=== PATIENT | female | born 1955 | race Caucasian/White ===

== ENCOUNTER → 2016-07-19 | Outpatient (CLI) | payer MEDICARE ==
[2016-07-19 08:39] LABS: HEMATOCRIT 41.1 % (36.0-47.0); HEMOGLOBIN 13.2 g/dL (12.0-15.5); HGB HCT DIFFERENCE -1.5; MEAN CORPUSCULAR HEMOGLOBIN 29.5 pg (27.0-33.4); MEAN CORPUSCULAR HGB CONC 32.1 g/dL (32.0-36.0); MEAN CORPUSCULAR VOLUME 92 fl (80-97); RED BLOOD COUNT 4.48 10^6/uL (3.72-5.28); RED CELL DISTRIBUTION WIDTH 14.4 % (11.5-14.0); WHITE BLOOD COUNT 7.7 10^3/uL (4.0-10.5)
[2016-07-19 09:18] LABS: ALANINE AMINOTRANSFERASE 33 U/L (9-52); ALBUMIN 3.3 g/dL (3.5-5.0); ALKALINE PHOSPHATASE 96 U/L (38-126); ASPARTATE AMINO TRANSFERASE 32 U/L (14-36); BILIRUBIN,TOTAL 0.3 mg/dL (0.2-1.3); CHOLESTEROL 201.19 mg/dL (0-200); Direct HDL 52 mg/dL (>40); MAGNESIUM 1.9 mg/dL (1.6-2.3); TOTAL PROTEIN 5.7 g/dL (6.3-8.2); TRIGLYCERIDES 220 mg/dL (<150)
[2016-07-19 09:20] LABS: ANION GAP 7 (5-19); BLOOD UREA NITROGEN 13 mg/dL (7-20); CALCIUM 8.9 mg/dL (8.4-10.2); CARBON DIOXIDE 33 mmol/L (22-30); CHLORIDE 106 mmol/L (98-107); CREATININE RESULT 0.87 mg/dL (0.52-1.25); GLUCOSE 109 mg/dL (75-110); POTASSIUM 4.3 mmol/L (3.6-5.0); SODIUM 146.4 mmol/L (137-145)
[2016-07-19 09:29] LABS: DIRECT LDL 108 mg/dL (<100)
== END ==
LOC: OD 07:19
PROVIDERS: ATTEND Internal Medicine Cardiovascular Disease
DX: Z79.899 Other long term (current) drug therapy (principal); I48.4 Atypical atrial flutter
CPT/HCPCS: 36415; 80048; 80061; 80076; 83735; 84443; 85027

== ENCOUNTER → 2017-07-22 | Outpatient (CLI) | payer MEDICARE ==
--- NOTE | 2017-07-22 17:49 | RADIOLOGY REPORT (SQ) ---
EXAM DESCRIPTION: OS CALCIS/HEEL LEFT COMPLETED DATE/TIME: 07/22/2017 5:37 pm REASON FOR STUDY: PAIN OF LEFT HEEL M79.672 PAIN IN LEFT FOOT COMPARISON: None. NUMBER OF VIEWS: Two views. TECHNIQUE: Plantar and oblique radiographic images acquired of the left calcaneous. LIMITATIONS: None. FINDINGS: MINERALIZATION: Normal. BONES: No acute fracture or dislocation. No worrisome bone lesions. Mild posterior and plantar calc aneal spurring. JOINTS: No effusions. SOFT TISSUES: No soft tissue swelling. No foreign body. OTHER: No other significant finding. IMPRESSION: CALCANEAL SPURRING. NO ACUTE OSSEOUS ABNORMALITY. TECHNICAL DOCUMENTATION: JOB ID: [id number] [employer]- All Rights Reserved
== END ==
LOC: OD 17:23
PROVIDERS: ATTEND Family Medicine
DX: M79.672 Pain in left foot (principal); M77.32 Calcaneal spur, left foot

== ENCOUNTER 2018-01-27 19:37 | Emergency (ER) | payer MEDICARE ==
[2018-01-27] MEDS ORDERED: NORMAL SALINE 1000 ML 1,000 ML IV ONE (21:23)
[2018-01-27] MEDS ORDERED: PROCHLORPERAZINE EDISYLATE INJ 10 MG/2 ML VIAL IV ONE (21:23)
[2018-01-27] MEDS ORDERED: DIPHENHYDRAMINE HCL 50 MG/ML VIAL IV ONE (21:24)
[2018-01-27 21:46] LABS: ABSOLUTE BASOPHILS # (AUTO) 0.1 10^3/uL (0.0-0.2); ABSOLUTE EOSINOPHILS # (AUTO) 0.2 10^3/uL (0.0-0.6); ABSOLUTE LYMPHOCYTES (AUTO) 3.1 10^3/uL (0.5-4.7); ABSOLUTE MONOCYTES (AUTO) 0.9 10^3/uL (0.1-1.4); BASOPHILS % (AUTO) 0.5 % (0-2); EOSINOPHILS % (AUTO) 1.3 % (0-6); HEMATOCRIT 40.6 % (36.0-47.0); HEMOGLOBIN 13.6 g/dL (12.0-15.5); LYMPHOCYTES % (AUTO) 20.3 % (13-45); MEAN CORPUSCULAR HEMOGLOBIN 30.2 pg (27.0-33.4); MEAN CORPUSCULAR HGB CONC 33.5 g/dL (32.0-36.0); MEAN CORPUSCULAR VOLUME 90 fl (80-97); MONOCYTES % (AUTO) 5.7 % (3-13); PLATELET COUNT 245 10^3/uL (150-450); RED BLOOD COUNT 4.51 10^6/uL (3.72-5.28); RED CELL DISTRIBUTION WIDTH 14.2 % (11.5-14.0); SEGMENTED NEUTROPHILS % (AUTO) 72.2 % (42-78); TOTAL CELLS COUNTED % (AUTO) 100 %; WHITE BLOOD COUNT 15.2 10^3/uL (4.0-10.5)
[2018-01-27 21:50] LABS: APPEARANCE,URINE CLEAR; BILIRUBIN,URINE NEGATIVE (NEGATIVE); COLOR,URINE COLORLESS; GLUCOSE, URINE 150 mg/dL (NEGATIVE); KETONES,URINE NEGATIVE (NEGATIVE); LEUKOCYTE ESTERASE,URINE NEGATIVE (NEGATIVE); NITRITE,URINE NEGATIVE (NEGATIVE); PROTEIN,URINE NEGATIVE (NEGATIVE); URINE SPECIFIC GRAVITY 1.004; UROBILINOGEN,URINE NEGATIVE mg/dL (<2.0)
[2018-01-27 21:54] LABS: ALANINE AMINOTRANSFERASE 29 U/L (9-52); ALBUMIN 3.8 g/dL (3.5-5.0); ALKALINE PHOSPHATASE 85 U/L (38-126); ANION GAP 9 (5-19); ASPARTATE AMINO TRANSFERASE 34 U/L (14-36); BILIRUBIN,DIRECT 0.3 mg/dL (0.0-0.4); BILIRUBIN,TOTAL 0.5 mg/dL (0.2-1.3); BLOOD UREA NITROGEN 19 mg/dL (7-20); CARBON DIOXIDE 26 mmol/L (22-30); CHLORIDE 106 mmol/L (98-107); GLUCOSE 139 mg/dL (75-110); POTASSIUM 4.1 mmol/L (3.6-5.0); SODIUM 140.7 mmol/L (137-145); TOTAL PROTEIN 6.3 g/dL (6.3-8.2)
--- NOTE | 2018-01-27 22:08 | RADIOLOGY REPORT (SQ) ---
EXAM DESCRIPTION: CT HEAD WITHOUT COMPLETED DATE/TIME: 01/27/2018 9:59 pm REASON FOR STUDY: headache, nose bleed COMPARISON: 01/20/2016 TECHNIQUE: Axial images acquired through the brain without intravenous contrast. Images reviewed wi th bone, brain and subdural windows. Additional sagittal and coronal reconstructions were generated. Images stored on PACS. All CT scanners at this facility use dose modulation, iterative reconstruction, and/or weight based d osing when appropriate to reduce radiation dose to as low as reasonably achievable (ALARA). [facility]: Dose Right [facility]: CareDose [facility]: Dose Right [facility]: Teradose 4D [facility]: Smart [employer] RADIATION DOSE: CT Rad equipment meets quality standard of care and radiation dose reduction techniq ues were employed. CTDIvol: 53.2 mGy. DLP: 1044 mGy-cm. mGy. LIMITATIONS: None. FINDINGS: VENTRICLES: Normal size and contour. CEREBRUM: No masses. No hemorrhage. No midline shift. No evidence for acute infarction. Normal gra y/white matter differentiation. No areas of low density in the white matter. CEREBELLUM: No masses. No hemorrhage. No alteration of density. No evidence for acute infarction. EXTRAAXIAL SPACES: No fluid collections. No masses. ORBITS AND GLOBE: No intra- or extraconal masses. Normal contour of globe without masses. CALVARIUM: No fracture. PARANASAL SINUSES: No fluid or mucosal thickening. SOFT TISSUES: No mass or hematoma. OTHER: No other significant finding. IMPRESSION: NORMAL BRAIN CT WITHOUT CONTRAST. EVIDENCE OF ACUTE STROKE: NO. COMMENT: Quality ID # [id number]: Final reports with documentation of one or more dose reduction techniques (e.g., Automated exposure control, adjustment of the mA and/or kV according to patient size, use of iterative reconstruction technique) TECHNICAL DOCUMENTATION: JOB ID: [id number] [email or web address]- All Rights Reserved Reading location - IP/workstation name: [email or web address]
--- NOTE | 2018-01-27 22:51 | ER Document Report ---
ED General - General Chief Complaint: Nose Bleed Stated Complaint: HEADACHE/NOSE BLEED Time Seen by Provider: 01/27/18 21:09 Mode of Arrival: Medic Information source: Patient Notes: Patient is a 62-year-old female who presents to the emergency department via EMS for headache with nosebleed. Patient reports that she has had a headache since approximately 5:55 PM tonight accompanied by a nosebleed. Patient reports that she has a history of migraines and this feels the same as a migraine. She reports the headache was a gradual onset is located on the left side of her head. Patient reports that over the last several weeks she has had nosebleeds accompanying her headaches. Patient reports that she was seen at [facility] emergency department on Tuesday night, had a head CT, EKG and blood work that was all apparently unremarkable. Patient denies any fever. Does report that she has been feeling dizzy lately with some generalized weakness. TRAVEL OUTSIDE OF THE [place] IN LAST 30 DAYS: No - Related Data Allergies/Adverse Reactions: adhesive [Adhesive] Allergy (Severe, Verified 10/08/15 09:48) rash cephalexin [Cephalexin] Allergy (Severe, Verified 10/08/15 09:48) sore tongue ciprofloxacin [From Cipro] Allergy (Severe, Verified 10/08/15 09:48) itching ciprofloxacin HCl [From Cipro] Allergy (Severe, Verified 10/08/15 09:48) itching cobamamide [From B12] Allergy (Severe, Verified 10/08/15 09:48) Lips swelled Cyanocobalamin [From B12] Allergy (Severe, Verified 10/08/15 09:48) Lips swelled lamotrigine [Lamotrigine] Allergy (Severe, Verified 10/08/15 09:48) manic linezolid [From Zyvox] Allergy (Severe, Verified 10/08/15 09:48) severe rxn other meds meperidine HCl [From Demerol] Allergy (Severe, Verified 10/08/15 09:48) dizzy,n and v Penicillins Allergy (Severe, Verified 10/08/15 09:48) jtchimg,swelling,rash vancomycin [Vancomycin] Allergy (Severe, Verified 10/08/15 09:48) Hives venlafaxine HCl [From Effexor] Allergy (Severe, Verified 10/08/15 09:48) heart races,increased b/p dpt shot Allergy (Severe, Uncoded 10/08/15 09:48) itching,rash,swelling Past Medical History - General Information source: Patient - Social History Smoking Status: Never Smoker Frequency of alcohol use: None Drug Abuse: None Family History: Hyperlipidemia, Hypertension Patient has suicidal ideation: No Patient has homicidal ideation: No - Past Medical History Cardiac Medical History: Denies: Hx Coronary Artery Disease, Hx Heart Attack, Hx Hypertension - on lasix for edema Pulmonary Medical History: Reports: Hx Bronchitis, Hx COPD - mild, Hx Pneumonia Denies: Hx Asthma Neurological Medical History: Reports: Hx Migraine. Denies: Hx Cerebrovascular Accident, Hx Seizures Endocrine Medical History: Reports: Hx Diabetes Mellitus Type 2 Renal/ Medical History: Denies: Hx Peritoneal Dialysis GI Medical History: Reports: Hx Gastroesophageal Reflux Disease Musculoskeletal Medical History: Reports Hx Arthritis Psychiatric Medical History: Reports: Hx Bipolar Disorder Past Surgical History: Reports: Hx Abdominal Surgery, Hx Appendectomy, Hx Bowel Surgery - part of small intestine removed 2004, Hx Cardiac Catheterization, Hx Section, Hx Cholecystectomy, Hx Hysterectomy, Hx Orthopedic Surgery - L knee - Immunizations Immunizations up to date: Yes Hx Diphtheria, Pertussis, Tetanus Vaccination: - allergic Hx Pneumococcal Vaccination: 05/19/10 Review of Systems - Review of Systems Constitutional: No symptoms reported, Malaise, Weakness EENT: No symptoms reported Cardiovascular: No symptoms reported Respiratory: No symptoms reported Gastrointestinal: No symptoms reported Genitourinary: No symptoms reported Female Genitourinary: No symptoms reported Musculoskeletal: No symptoms reported Skin: No symptoms reported Hematologic/Lymphatic: No symptoms reported Neurological/Psychological: Headaches. denies: Numbness, Tingling Physical Exam - Vital signs Vitals: Temp Pulse Resp BP Pulse Ox 98.4 F 87 12 143/72 H 93 01/27/18 19:40 01/27/18 19:40 01/27/18 19:40 01/27/18 19:40 01/27/18 19:40 - Notes Notes: PHYSICAL EXAMINATION: GENERAL: Non-toxic, in mild distress. HEAD: Atraumatic, normocephalic. EYES: Pupils equal round and reactive to light, extraocular movements intact, conjunctiva are normal. ENT: Nares patent, oropharynx clear without exudates. Moist mucous membranes. NECK: Normal range of motion, supple without lymphadenopathy LUNGS: Breath sounds clear to auscultation bilaterally and equal. No wheezes rales or rhonchi. HEART: Regular rate and rhythm without murmurs ABDOMEN: Soft, nontender, nondistended abdomen. No guarding, no rebound. No masses appreciated. Female : deferred. Musculoskeletal: Normal range of motion, no pitting or edema. No cyanosis. NEUROLOGICAL: Cranial nerves grossly intact. Normal speech, normal gait. Normal sensory, motor exams PSYCH: Normal mood, normal affect. SKIN: Warm, Dry, normal turgor, no rashes or lesions noted. Course - Re-evaluation Re-evalutation: Nosebleed was already resolved before arrival to the emergency department. Patient reports that Benadryl and Compazine usually alleviate her migraines. Patient reports that this migraine is similar to her typical migraines however patient reports that this is worse. Patient denies any fever. Patient reports that her headache has been going on for a week intermittently. See HPI. Examination is fairly benign (see exam), patient does not have any nuchal rigidity. Patient reports mild resolution of her pain after Benadryl and Compazine, patient very groggy likely due to the Benadryl as patient was more alert when she arrived. Comprehensive metabolic panel and urinalysis are both unremarkable , CT of the head is also unremarkable. CBC reveals leukocytosis of 15 with left shift. I did discuss this case with Dr. Ceja who recommends to give patient additional dose of medication for her headache and reevaluate. Dr. Ceja will go to the bedside and evaluate the patient. Patient received a dose of IV Toradol, IV Ativan and p.o. Imitrex, patient now reports near complete resolution of her symptoms. Patient has perked up and reports that she is ready to go. Patient's vital signs are stable. Patient encouraged to continue her follow-up with her primary care provider. Patient will return to the emergency department if she develops worsening symptoms or develops a fever. - Vital Signs Vital signs: Temp Pulse Resp BP Pulse Ox 98.4 F 87 14 125/59 L 93 01/27/18 19:40 01/27/18 19:40 01/28/18 03:01 01/28/18 03:01 01/28/18 03:01 - Laboratory Result Diagrams: 01/27/18 19:53 01/27/18 19:53 Laboratory results interpreted by me: 01/27/18 01/27/18 01/27/18 19:46 19:48 19:53 WBC 15.2 H RDW 14.2 H Absolute Neutrophils 11.0 H Glucose POC Glucose 157 H Urine Glucose (UA) 150 H 01/27/18 19:53 WBC RDW Absolute Neutrophils Glucose 139 H POC Glucose Urine Glucose (UA) Discharge - Discharge Clinical Impression: Migraine Qualifiers: Migraine type: other Status migrainosus presence: without status migrainosus Intractability: not intractable Qualified Code(s): G43.809 - Other migraine, not intractable, without status migrainosus Condition: Stable Disposition: HOME, SELF-CARE Additional Instructions: Migraine Headache The physician feels that your symptoms are due to a migraine attack. Migraines are caused by changes in the blood vessels of the head. Arteries go into spasm, often causing warning symptoms that a headache may begin soon. As the spasm goes away, the vessels dilate and throb, causing the pounding pain of a migraine headache. Migraines often cause nausea and vomiting. The treatment of headaches varies with severity and cause of pain. Not all headaches need pain shots -- in fact, there is evidence that using narcotics for headaches may make them worse in the long run. The physician will determine the therapy that's in your best interest for this particular headache. Medications are available that may prevent migraines, or stop them as they first occur. If one medication is not helpful, try another. If migraines are frequent, be patient -- follow the doctor's recommendations. Call the physician if you are worsening, or if new symptoms arise. Please follow-up with your primary care provider as already scheduled. Please return to the emergency department if you develop worsening symptoms, develop a headache with fever. Referrals: SHAMA HOFFMAN MD [NO LOCAL MD] - Follow up as needed
[2018-01-28] MEDS ORDERED: SUMATRIPTAN SUCCINATE 100 MG TABLET PO ONE (00:27)
[2018-01-28] MEDS ORDERED: LORAZEPAM INJ 2 MG/1 ML VIAL IV ONE (00:28)
[2018-01-28] MEDS ORDERED: KETOROLAC TROMETHAMINE INJ/PF 30 MG/1 ML SDV IV ONE (00:51)
[2018-01-28] MEDS ORDERED: SUMATRIPTAN SUCCINATE 100 MG TABLET ONE (01:18)
[2018-01-28 03:16] VITALS: BP 125/59
== END 2018-01-28 03:39 | disposition home or self-care (01) ==
LOC: ER 19:37
DX: G43.909 Migraine, unspecified, not intractable, without status migrainosus (principal); R04.0 Epistaxis; R42 Dizziness and giddiness; R53.1 Weakness; J44.9 Chronic obstructive pulmonary disease, unspecified; E11.9 Type 2 diabetes mellitus without complications; Z91.048 Other nonmedicinal substance allergy status; Z88.1 Allergy status to other antibiotic agents; Z88.8 Allergy status to other drugs, medicaments and biological substances; Z88.5 Allergy status to narcotic agent; Z88.0 Allergy status to penicillin; Z88.7 Allergy status to serum and vaccine; D72.829 Elevated white blood cell count, unspecified
CPT/HCPCS: 99284; 96361; 96374; 96375; 36415; 82962; 85025; 80053; 81001; 70450; J1200; J1885; J2060; J0780; J7030; A9270; J3490

== ENCOUNTER 2018-11-19 11:52 | Emergency (ER) | payer MEDICARE ==
[2018-11-19 12:02] VITALS: BP 147/72
[2018-11-19] MEDS ORDERED: NORMAL SALINE 1000 ML 500 ML IV ONE (12:16)
[2018-11-19] MEDS ORDERED: KETOROLAC TROMETHAMINE INJ/PF 30 MG/1 ML SDV IV ONE (12:16)
[2018-11-19] MEDS ORDERED: ONDANSETRON HCL INJ/PF 4 MG/2 ML SDV IV ONE (12:16)
[2018-11-19] MEDS ORDERED: PROCHLORPERAZINE EDISYLATE INJ 10 MG/2 ML VIAL IV ONE (12:16)
--- NOTE | 2018-11-19 12:20 | ER Document Report ---
ED Medical Screen (RME) - General Chief Complaint: Headache Stated Complaint: HEADACHE Time Seen by Provider: 11/19/18 12:11 Mode of Arrival: Wheelchair Information source: Patient Notes: Patient presents to the emergency department with complaints of migraine headache across her head to her temples. Reports this her typical migraine headache. She reports before the headache starts that she has an aura and she takes her migraine medication. This migraine started yesterday, she took her medication but her migraine was not resolved. Usually she goes to her primary care provider for these migraines and receives a muscle relaxer and Toradol shot. She reports she is somewhat nauseated today. Denies vomiting. Reports light makes the headache hurt more. I have greeted and performed a rapid initial assessment of this patient. A comprehensive ED assessment and evaluation of the patient, analysis of test results and completion of the medical decision making process will be conducted by additional ED providers. Dictation of this chart was performed using voice recognition software; therefore, there may be some unintended grammatical errors. TRAVEL OUTSIDE OF THE [place] IN LAST 30 DAYS: No - Related Data Allergies/Adverse Reactions: adhesive [Adhesive] Allergy (Severe, Verified 11/19/18 11:53) rash cephalexin [Cephalexin] Allergy (Severe, Verified 11/19/18 11:53) sore tongue ciprofloxacin [From Cipro] Allergy (Severe, Verified 11/19/18 11:53) itching ciprofloxacin HCl [From Cipro] Allergy (Severe, Verified 11/19/18 11:53) itching cobamamide [From B12] Allergy (Severe, Verified 11/19/18 11:53) Lips swelled Cyanocobalamin [From B12] Allergy (Severe, Verified 11/19/18 11:53) Lips swelled lamotrigine [Lamotrigine] Allergy (Severe, Verified 11/19/18 11:53) manic linezolid [From Zyvox] Allergy (Severe, Verified 11/19/18 11:53) severe rxn other meds meperidine HCl [From Demerol] Allergy (Severe, Verified 11/19/18 11:53) dizzy,n and v Penicillins Allergy (Severe, Verified 11/19/18 11:53) jtchimg,swelling,rash vancomycin [Vancomycin] Allergy (Severe, Verified 11/19/18 11:53) Hives venlafaxine HCl [From Effexor] Allergy (Severe, Verified 11/19/18 11:53) heart races,increased b/p dpt shot Allergy (Severe, Uncoded 11/19/18 11:53) itching,rash,swelling Past Medical History - Past Medical History Cardiac Medical History: Denies: Hx Coronary Artery Disease, Hx Heart Attack, Hx Hypertension - on lasix for edema Pulmonary Medical History: Reports: Hx Bronchitis, Hx COPD - mild, Hx Pneumonia Denies: Hx Asthma Neurological Medical History: Reports: Hx Migraine. Denies: Hx Cerebrovascular Accident, Hx Seizures Endocrine Medical History: Reports: Hx Diabetes Mellitus Type 2 Renal/ Medical History: Denies: Hx Peritoneal Dialysis GI Medical History: Reports: Hx Gastroesophageal Reflux Disease Musculoskeltal Medical History: Reports Hx Arthritis Psychiatric Medical History: Reports: Hx Bipolar Disorder Past Surgical History: Reports: Hx Abdominal Surgery, Hx Appendectomy, Hx Bowel Surgery - part of small intestine removed 2004, Hx Cardiac Catheterization, Hx Section, Hx Cholecystectomy, Hx Hysterectomy, Hx Orthopedic Surgery - L knee - Immunizations Immunizations up to date: Yes Hx Diphtheria, Pertussis, Tetanus Vaccination: - allergic Physical Exam - Vital signs Vitals: Temp Pulse Resp BP Pulse Ox 98.3 F 57 L 16 147/72 H 95 11/19/18 12:00 11/19/18 12:00 11/19/18 12:00 11/19/18 12:00 11/19/18 12:00 Course - Vital Signs Vital signs: Temp Pulse Resp BP Pulse Ox 98.3 F 57 L 16 147/72 H 95 11/19/18 12:00 11/19/18 12:00 11/19/18 12:00 11/19/18 12:00 11/19/18 12:00
--- NOTE | 2018-11-19 14:39 | ER Document Report ---
ED Headache - General Chief Complaint: Headache Stated Complaint: HEADACHE Time Seen by Provider: 11/19/18 12:11 Primary Care Provider: IRIS MCDONALD NP-C [Primary Care Provider] - Follow up tomorrow Mode of Arrival: Wheelchair Information source: Patient Notes: 63-year-old female presented to ED for complaint of migraine across her temples. She states this is her normal migraine headache. She states she took her medication and it did not help today. States she usually goes to her primary care for these migraines and receives a muscle relaxant a Toradol shot. She states she was somewhat nauseated today but has not had any vomiting. She was sleepy when I examined her due to having already received medications for her headache in the pit area. She states she no longer had a headache when I saw her. She states she was feeling completely better and was ready to go home. She states she has an appointment with a neurologist and she had a recent MRI and she needs to follow-up with a neurologist concerning this. TRAVEL OUTSIDE OF THE [place] IN LAST 30 DAYS: No - HPI Patient complains to provider of: Headache, "Migraine" Patient reports: Hx chronic headaches Onset: Yesterday Onset was: Gradual Timing: Gone now Quality of pain: No pain Severity: None Pain Level: Denies Associated symptoms: Nausea/vomiting Exacerbated by: Noise, Movement Similar symptoms previously: Yes Recently seen / treated by doctor: No - Related Data Allergies/Adverse Reactions: adhesive [Adhesive] Allergy (Severe, Verified 11/19/18 11:53) rash cephalexin [Cephalexin] Allergy (Severe, Verified 11/19/18 11:53) sore tongue ciprofloxacin [From Cipro] Allergy (Severe, Verified 11/19/18 11:53) itching ciprofloxacin HCl [From Cipro] Allergy (Severe, Verified 11/19/18 11:53) itching cobamamide [From B12] Allergy (Severe, Verified 11/19/18 11:53) Lips swelled Cyanocobalamin [From B12] Allergy (Severe, Verified 11/19/18 11:53) Lips swelled lamotrigine [Lamotrigine] Allergy (Severe, Verified 11/19/18 11:53) manic linezolid [From Zyvox] Allergy (Severe, Verified 11/19/18 11:53) severe rxn other meds meperidine HCl [From Demerol] Allergy (Severe, Verified 11/19/18 11:53) dizzy,n and v Penicillins Allergy (Severe, Verified 11/19/18 11:53) jtchimg,swelling,rash vancomycin [Vancomycin] Allergy (Severe, Verified 11/19/18 11:53) Hives venlafaxine HCl [From Effexor] Allergy (Severe, Verified 11/19/18 11:53) heart races,increased b/p dpt shot Allergy (Severe, Uncoded 11/19/18 11:53) itching,rash,swelling Past Medical History - General Information source: Patient - Social History Smoking Status: Never Smoker Chew tobacco use (# tins/day): No Frequency of alcohol use: None Drug Abuse: None Lives with: Family Family History: Hyperlipidemia, Hypertension Patient has suicidal ideation: No Patient has homicidal ideation: No - Past Medical History Cardiac Medical History: Reports: None Pulmonary Medical History: Reports: Hx Bronchitis, Hx COPD - mild, Hx Pneumonia EENT Medical History: Reports: None Neurological Medical History: Reports: Hx Migraine Endocrine Medical History: Reports: Hx Diabetes Mellitus Type 2 Renal/ Medical History: Reports: None Malignancy Medical History: Reports: None GI Medical History: Reports: Hx Gastroesophageal Reflux Disease Musculoskeletal Medical History: Reports Hx Arthritis Skin Medical History: Reports None Psychiatric Medical History: Reports: Hx Bipolar Disorder Traumatic Medical History: Reports: None Infectious Medical History: Reports: None Past Surgical History: Reports: Hx Abdominal Surgery, Hx Appendectomy, Hx Bowel Surgery - part of small intestine removed 2004, Hx Cardiac Catheterization, Hx Section, Hx Cholecystectomy, Hx Hysterectomy, Hx Orthopedic Surgery - L knee - Immunizations Immunizations up to date: Yes Hx Diphtheria, Pertussis, Tetanus Vaccination: - allergic Hx Pneumococcal Vaccination: 05/19/10 Review of Systems - Review of Systems Constitutional: No symptoms reported EENT: No symptoms reported Cardiovascular: No symptoms reported Respiratory: No symptoms reported Gastrointestinal: Nausea. denies: Vomiting Genitourinary: No symptoms reported Female Genitourinary: No symptoms reported Musculoskeletal: No symptoms reported Skin: No symptoms reported Hematologic/Lymphatic: No symptoms reported Neurological/Psychological: Headaches -: Yes All other systems reviewed and negative Physical Exam - Vital signs Vitals: Temp Pulse Resp BP Pulse Ox 98.3 F 57 L 16 147/72 H 95 11/19/18 12:00 11/19/18 12:00 11/19/18 12:00 11/19/18 12:00 11/19/18 12:00 Interpretation: Normal - General General appearance: Appears well, Alert - HEENT Head: Normocephalic, Atraumatic Eyes: Normal Pupils: PERRL - Respiratory Respiratory status: No respiratory distress Chest status: Nontender Breath sounds: Normal Chest palpation: Normal - Cardiovascular Rhythm: Regular Heart sounds: Normal auscultation Murmur: No - Abdominal Inspection: Normal Distension: No distension Bowel sounds: Normal Tenderness: Nontender Organomegaly: No organomegaly - Back Back: Normal, Nontender - Extremities General upper extremity: Normal inspection, Nontender, Normal color, Normal ROM, Normal temperature General lower extremity: Normal inspection, Nontender, Normal color, Normal ROM, Normal temperature, Normal weight bearing. No: Gardenia's sign - Neurological Neuro grossly intact: Yes Cognition: Normal Orientation: AAOx4 Shannon Coma Scale Eye Opening: Spontaneous Jenny Coma Scale Verbal: Oriented Shannon Coma Scale Motor: Obeys Commands Shannon Coma Scale Total: 15 Speech: Normal Cranial nerves: Normal Cerebellar coordination: Normal Motor strength normal: LUE, RUE, LLE, RLE Additional motor exam normals: Equal rounding machine tender Babinski reflex: Normal (flexor plantar) Sensory: Normal Biceps - Reflex grade: 2 = Normal Triceps - Reflex grade: 2 = Normal Knee - Reflex grade: 2 = Normal Ankle - Reflex grade: 2 = Normal - Psychological Associated symptoms: Normal affect, Normal mood - Skin Skin Temperature: Warm Skin Moisture: Dry Skin Color: Normal Course - Re-evaluation Re-evalutation: 11/19/18 14:39 Patient was able to verbalize understanding of assessment. She stated that her headache is completely gone she no longer has any nausea and she does have an appointment with Dr. Sykes for follow-up. states that she recently had an MRI and has 3 little spots that she has to follow-up with Mony. She said he states that the main reason she came today was to get relief from the pain and use the Toradol helps with the pain. Patient states that the pain is completely gone at this time. - Vital Signs Vital signs: Temp Pulse Resp BP Pulse Ox 98.3 F 57 L 16 147/72 H 95 11/19/18 12:00 11/19/18 12:00 11/19/18 12:00 11/19/18 12:00 11/19/18 12:00 Discharge - Discharge Clinical Impression: Migraine Qualifiers: Migraine type: unspecified Status migrainosus presence: without status migrainosus Intractability: not intractable Qualified Code(s): G43.909 - Migraine, unspecified, not intractable, without status migrainosus Condition: Stable Disposition: HOME, SELF-CARE Additional Instructions: HEADACHE: The physician does not feel that the headache you are experiencing has a serious underlying cause. Most headaches are due to emotional stress, with resultant muscle tension (tension headache). Occasionally, headaches are secondary to changes in the blood vessels of the scalp (vascular headache and migraine headache). Sometimes, a headache is the first symptom of another developing illness, such as a viral infection. You have no evidence of stroke, bleeding, meningitis, or other serious cause of your headache. The treatment of headaches varies with the severity and cause of the pain. Not all headaches need pain shots. In fact, there is evidence that using narcotics for headaches may make them worse in the long run. The physician will determine the therapy that's in your best interest. If you develop a fever, if the headache is different from any you've previously experienced, or if the headache progressively worsens, then call your physician at once or go to the emergency room. USE OF DIPHENHYDRAMINE: Diphenhydramine (Benadryl) is an antihistamine and has been recommended to help treat your headache and to prevent side effects of other medications used to treat headaches. The medication can be repeated four times daily. Age Elixir (12.5 mg/tsp) 25 mg pill adult 1-2 tabs Antihistamines may cause drowsiness, especially with the first dose. Do not operate machinery or drive while under the effects of the medication. Do not combine the medication with alcohol, or with any other medication without talking to your doctor. ANTINAUSEA MEDICATION: You have been given a medication to suppress nausea and vomiting. This type of medication can be given as a shot, pill, or suppository. It will usually last for many hours. Pills and shots usually last six to eight hours, suppositories last about 12 hours. For the typical illness, only one or two doses of the medication may be necessary. Mild lightheadedness may occur. This type of medicine can cause drowsiness. Do not drive or operate dangerous machinery while under its influence. Do not mix with alcohol. See your doctor at once if you have muscle spasms or tightness, or uncontrollable motions (particularly of the neck, mouth, or jaw). Persistent vomiting or severe lightheadedness should also be evaluated by the physician. INTRAVENOUS COMPAZINE FOR HEADACHE: You have received therapy for headaches, using intravenous Compazine. This treatment is dramatically successful in relieving the headache in about 50 percent of cases. When it works, it provides a rapid method of eliminating the headache without resorting to narcotics (and the problems associated with them). Most patients still feel fully alert after the Compazine, but others may be slightly drowsy. It's best not to drive or work with machinery for six to eight hours. Do not take alcohol or other medication unless you discuss it with the doctor. If you develop tightness and spasms in your muscles, especially the neck and tongue, you should return. This is a side effect which can be treated. TORADOL INJECTION: You have been given an injection of ketorolac tromethamine (Toradol). This is an excellent, safe drug for pain control. It also has potent antiinflammatory action. You should have significant pain relief within about one hour. Toradol is not addicting and is non-sedating. It does not interfere with driving or work. Call or return if you develop itching, hives, shortness of breath, or rash. FOLLOW-UP CARE: If you have been referred to a physician for follow-up care, call the physicians office for an appointment as you were instructed or within the next two days. If you experience worsening or a significant change in your symptoms, notify the physician immediately or return to the Emergency Department at any time for re-evaluation. Forms: Elevated Blood Pressure Referrals: IRIS MCDONALD NP-C [Primary Care Provider] - Follow up tomorrow
== END 2018-11-19 14:55 | disposition home or self-care (01) ==
LOC: ER 11:52
DX: G43.909 Migraine, unspecified, not intractable, without status migrainosus (principal); R11.0 Nausea; J44.9 Chronic obstructive pulmonary disease, unspecified; E11.9 Type 2 diabetes mellitus without complications; Z91.048 Other nonmedicinal substance allergy status; Z88.1 Allergy status to other antibiotic agents; Z88.8 Allergy status to other drugs, medicaments and biological substances; Z88.0 Allergy status to penicillin; Z88.5 Allergy status to narcotic agent
CPT/HCPCS: 99283; J1885; J0780; J2405; J7030

== ENCOUNTER 2020-02-04 12:03 | Emergency (ER) | payer MEDICARE ==
--- NOTE | 2020-02-04 13:17 | ER Document Report ---
ED Medical Screen (RME) - General Chief Complaint: Leg Pain Stated Complaint: RIGHT LEG PAIN Time Seen by Provider: 02/04/20 13:12 Primary Care Provider: IRIS MCDONALD NP-C [Primary Care Provider] - Follow up as needed Notes: HPI: 64-year-old female with prior history of blood clots who is on Eliquis presenting for right leg pain and concern over a new blood clot. Recent travel to [place]. Patient states that she would like to have both legs checked today because she has had pain less blood clots previously. No chest pain no shortness of breath PHYSICAL EXAMINATION: No visible swelling of the bilateral lower extremities no specific pain on palpation of the right calf I have greeted and performed a rapid initial assessment of this patient. A comprehensive ED assessment and evaluation of the patient, analysis of test results and completion of medical decision making process will be conducted by an additional ED providers. TRAVEL OUTSIDE OF THE [place] IN LAST 30 DAYS: No - Related Data Allergies/Adverse Reactions: adhesive [Adhesive] Allergy (Severe, Verified 11/19/18 11:53) rash cephalexin [Cephalexin] Allergy (Severe, Verified 11/19/18 11:53) sore tongue ciprofloxacin [From Cipro] Allergy (Severe, Verified 11/19/18 11:53) itching ciprofloxacin HCl [From Cipro] Allergy (Severe, Verified 11/19/18 11:53) itching cobamamide [From B12] Allergy (Severe, Verified 11/19/18 11:53) Lips swelled Cyanocobalamin [From B12] Allergy (Severe, Verified 11/19/18 11:53) Lips swelled lamotrigine [Lamotrigine] Allergy (Severe, Verified 11/19/18 11:53) manic linezolid [From Zyvox] Allergy (Severe, Verified 11/19/18 11:53) severe rxn other meds meperidine HCl [From Demerol] Allergy (Severe, Verified 11/19/18 11:53) dizzy,n and v Penicillins Allergy (Severe, Verified 11/19/18 11:53) jtchimg,swelling,rash vancomycin [Vancomycin] Allergy (Severe, Verified 11/19/18 11:53) Hives venlafaxine HCl [From Effexor] Allergy (Severe, Verified 11/19/18 11:53) heart races,increased b/p asenapine [From Saphris] Allergy (Verified 02/04/20 13:11) manic topiramate Allergy (Verified 02/04/20 13:12) tongue burning lurasidone [From Latuda] Adverse Reaction (Verified 02/04/20 13:11) sedation paliperidone [From Invega] Adverse Reaction (Verified 02/04/20 13:11) sedation dpt shot Allergy (Severe, Uncoded 11/19/18 11:53) itching,rash,swelling Home Medications: pt has paper list Past Medical History - Social History Chew tobacco use (# tins/day): No Frequency of alcohol use: None Drug Abuse: None - Past Medical History Cardiac Medical History: Denies: Hx Coronary Artery Disease, Hx Heart Attack, Hx Hypertension - on lasix for edema Pulmonary Medical History: Reports: Hx Bronchitis, Hx COPD - mild, Hx Pneumonia Denies: Hx Asthma Neurological Medical History: Reports: Hx Migraine. Denies: Hx Cerebrovascular Accident, Hx Seizures Endocrine Medical History: Reports: Hx Diabetes Mellitus Type 2 Renal/ Medical History: Denies: Hx Peritoneal Dialysis GI Medical History: Reports: Hx Gastroesophageal Reflux Disease Musculoskeltal Medical History: Reports Hx Arthritis Psychiatric Medical History: Reports: Hx Bipolar Disorder Past Surgical History: Reports: Hx Abdominal Surgery, Hx Appendectomy, Hx Bowel Surgery - part of small intestine removed 2004, Hx Cardiac Catheterization, Hx Section, Hx Cholecystectomy, Hx Hysterectomy, Hx Orthopedic Surgery - L knee - Immunizations Immunizations up to date: Yes Hx Diphtheria, Pertussis, Tetanus Vaccination: - allergic Physical Exam - Vital signs Vitals: Temp Pulse Resp BP Pulse Ox 99.3 F 83 18 123/65 96 02/04/20 12:25 02/04/20 12:25 02/04/20 12:25 02/04/20 12:25 02/04/20 12:25 Course - Vital Signs Vital signs: Temp Pulse Resp BP Pulse Ox 99.3 F 83 18 123/65 96 02/04/20 12:25 02/04/20 12:25 02/04/20 12:25 02/04/20 12:25 02/04/20 12:25 Doctor's Discharge - Discharge Referrals: IRIS MCDONALD, HEALTH DIAGNOSTICS TEACHER-C [Primary Care Provider] - Follow up as needed
[2020-02-04 14:34] LABS: ABSOLUTE BASOPHILS # (AUTO) 0.1 10^3/uL (0.0-0.2); ABSOLUTE EOSINOPHILS # (AUTO) 0.1 10^3/uL (0.0-0.6); ABSOLUTE LYMPHOCYTES (AUTO) 2.5 10^3/uL (0.5-4.7); ABSOLUTE MONOCYTES (AUTO) 0.8 10^3/uL (0.1-1.4); ABSOLUTE NEUT (AUTO) 5.2 10^3/uL (1.7-8.2); BASOPHILS % (AUTO) 0.7 % (0-2); EOSINOPHILS % (AUTO) 1.3 % (0-6); HEMATOCRIT 36.9 % (36.0-47.0); HEMOGLOBIN 12.1 g/dL (12.0-15.5); LYMPHOCYTES % (AUTO) 29.1 % (13-45); MEAN CORPUSCULAR HEMOGLOBIN 27.3 pg (27.0-33.4); MEAN CORPUSCULAR HGB CONC 32.9 g/dL (32.0-36.0); MEAN CORPUSCULAR VOLUME 83 fl (80-97); MONOCYTES % (AUTO) 9.4 % (3-13); PLATELET COUNT 255 10^3/uL (150-450); RED BLOOD COUNT 4.45 10^6/uL (3.72-5.28); RED CELL DISTRIBUTION WIDTH 17.5 % (11.5-14.0); SEGMENTED NEUTROPHILS % (AUTO) 59.5 % (42-78); TOTAL CELLS COUNTED % (AUTO) 100 %; WHITE BLOOD COUNT 8.7 10^3/uL (4.0-10.5)
--- NOTE | 2020-02-04 14:40 | ER Document Report ---
ED Extremity Problem, Lower - General Mode of Arrival: Ambulatory Information source: Patient, [facility] Records TRAVEL OUTSIDE OF THE [place] IN LAST 30 DAYS: No - Related Data Home Medications: pt has paper list <SEAN MAI - Last Filed: 02/04/20 16:46> <PEDROJEETKERENSHUBHAM Blackmon - Last Filed: 02/04/20 18:54> - General Chief Complaint: Leg Pain Stated Complaint: RIGHT LEG PAIN Time Seen by Provider: 02/04/20 13:12 Primary Care Provider: IRIS MCDONALD NP-C [NO LOCAL MD] - Follow up as needed Notes: This 64-year-old female patient comes emergency room complaining of discomfort to her right leg that started yesterday. She also noted some discoloration to the medial right leg which turned out to be some superficial varicosities. She did travel to [place] on 01/31/2020, and return home on 02/03/2020. She has an extensive past medical history which suggest a hypercoagulable state. She is on Eliquis at this time. 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 (SEAN MAI) - Related Data Allergies/Adverse Reactions: adhesive [Adhesive] Allergy (Severe, Verified 02/04/20 16:29) rash cephalexin [Cephalexin] Allergy (Severe, Verified 02/04/20 16:29) sore tongue ciprofloxacin [From Cipro] Allergy (Severe, Verified 02/04/20 16:29) itching ciprofloxacin HCl [From Cipro] Allergy (Severe, Verified 02/04/20 16:29) itching cobamamide [From B12] Allergy (Severe, Verified 02/04/20 16:29) Lips swelled Cyanocobalamin [From B12] Allergy (Severe, Verified 02/04/20 16:29) Lips swelled lamotrigine [Lamotrigine] Allergy (Severe, Verified 02/04/20 16:29) manic linezolid [From Zyvox] Allergy (Severe, Verified 02/04/20 16:29) severe rxn other meds meperidine HCl [From Demerol] Allergy (Severe, Verified 02/04/20 16:29) dizzy,n and v Penicillins Allergy (Severe, Verified 02/04/20 16:29) jtchimg,swelling,rash vancomycin [Vancomycin] Allergy (Severe, Verified 02/04/20 16:29) Hives venlafaxine HCl [From Effexor] Allergy (Severe, Verified 02/04/20 16:29) heart races,increased b/p asenapine [From Saphris] Allergy (Verified 02/04/20 16:29) manic topiramate Allergy (Verified 02/04/20 16:29) tongue burning lurasidone [From Latuda] Adverse Reaction (Verified 02/04/20 16:29) sedation paliperidone [From Invega] Adverse Reaction (Verified 02/04/20 16:29) sedation dpt shot Allergy (Severe, Uncoded 11/19/18 11:53) itching,rash,swelling Past Medical History - General Information source: Patient, [facility] Records - Social History Smoking Status: Never Smoker Cigarette use (# per day): No Chew tobacco use (# tins/day): No Smoking Education Provided: No Frequency of alcohol use: None Drug Abuse: None Lives with: Family Family History: Hyperlipidemia, Hypertension Patient has homicidal ideation: No - Past Medical History Cardiac Medical History: Reports: Hx DVT, Hx Hypercholesterolemia, Hx Pulmonary Embolism Pulmonary Medical History: Reports: Hx Bronchitis, Hx COPD - mild, Hx Pneumonia Neurological Medical History: Reports: Hx Migraine Endocrine Medical History: Reports: Hx Diabetes Mellitus Type 2 GI Medical History: Reports: Hx Gastroesophageal Reflux Disease Musculoskeletal Medical History: Reports Hx Arthritis Psychiatric Medical History: Reports: Hx Bipolar Disorder, Other - Restless leg syndrome Past Surgical History: Reports: Hx Abdominal Surgery, Hx Appendectomy, Hx Bowel Surgery - part of small intestine removed 2004, Hx Cardiac Catheterization, Hx Section, Hx Cholecystectomy, Hx Gastric Bypass Surgery, Hx Hysterectomy, Hx Orthopedic Surgery - L knee, left rotator cuff, Other - Sinus surgery - Immunizations Immunizations up to date: Yes Hx Diphtheria, Pertussis, Tetanus Vaccination: - allergic Hx Pneumococcal Vaccination: 05/19/10 <SEAN MAI - Last Filed: 02/04/20 16:46> Review of Systems - Review of Systems Constitutional: No symptoms reported EENT: No symptoms reported Cardiovascular: No symptoms reported Respiratory: No symptoms reported Gastrointestinal: No symptoms reported Genitourinary: No symptoms reported Female Genitourinary: Post menopausal Musculoskeletal: Leg swelling - Takes as needed Lasix, Other - Restless legs Skin: No symptoms reported Hematologic/Lymphatic: No symptoms reported Neurological/Psychological: Headaches <SEAN MAI - Last Filed: 02/04/20 16:46> Physical Exam - Extremities General upper extremity: Normal inspection General lower extremity: Edema - 1+ pitting edema bilaterally. Calf: Other - Right medial calf area has some subcutaneous varicosities. The proximal posterior calf region is tender to palpate. There is also some tenderness to palpate over the distal anterior medial tibial surface. <SEAN MAI - Last Filed: 02/04/20 16:46> - Vital signs Vitals: Temp Pulse Resp BP Pulse Ox 99.3 F 83 18 123/65 96 02/04/20 12:25 02/04/20 12:25 02/04/20 12:25 02/04/20 12:25 02/04/20 12:25 Course - Laboratory Result Diagrams: 02/04/20 14:18 02/04/20 14:18 - Transfer of Care Care transferred to following provider: Dr. Vincent <SEAN MAI - Last Filed: 02/04/20 16:46> - Laboratory Result Diagrams: 02/04/20 14:18 02/04/20 14:18 <CONG VINCENT - Last Filed: 02/04/20 18:54> - Re-evaluation Re-evalutation: 02/04/20 16:26 The patient has right leg pain following an automobile trip to [place] and back over this past weekend. She does have a history of hypercoagulable state, with DVTs in both legs and pulmonary emboli. She is currently taking Eliquis. She is supposed to be going to [facility] oncology for a work-up for suspected hypercoagulable state. The d-dimer is 0.36 which makes DVT unlikely. The physical exam does show tenderness in the popliteal and proximal right posterior leg. Venous Dopplers were ordered at triage, and due to tech shortage, the tech will be here at 5 PM to start doing the venous Dopplers that have been ordered. (SEAN MAI) 02/04/20 18:53 Care of this patient was turned over to me during my shift. The patient was primarily here because she noticed some varicosities in her right leg, had a trip to [place], but is concerned about the possibility of DVT. She has been taking her anticoagulants as prescribed. Verbal report given to me by the scrub tech, found Doppler to be negative. Patient relieved to find there was no evidence of DVT at this time. She is to follow-up closely with her primary care provider, return to the ED with worsening. (CONG VINCENT) - Vital Signs Vital signs: Temp Pulse Resp BP Pulse Ox 99.3 F 83 18 123/65 96 02/04/20 12:25 02/04/20 12:25 02/04/20 12:25 02/04/20 12:25 02/04/20 12:25 - Laboratory Laboratory results interpreted by me: 02/04/20 02/04/20 02/04/20 14:18 14:18 14:26 RDW 17.5 H Sodium 135.1 L BUN 21 H Glucose 129 H POC Glucose 153 H AST 52 H Alkaline Phosphatase 127 H - Transfer of Care Notes: 02/04/20 16:28 Patient is pending venous Doppler to evaluate for recurrent DVT in her right leg. (SEAN MAI) Discharge <SEAN MAI - Last Filed: 02/04/20 16:46> <CONG VINCENT - Last Filed: 02/04/20 18:54> - Discharge Clinical Impression: Right leg pain Condition: Stable Disposition: HOME, SELF-CARE Instructions: Leg Pain Nonspecific ([facility]), Varicose Veins ([facility]) Additional Instructions: Continue your home medications as prescribed. Follow-up with your primary care provider next week. If you develop increased pain, swelling, chest pain, shortness of breath, or any other new or concerning symptoms, please return immediately to the emergency department for reevaluation. Referrals: IRIS MCDONALD HARDWARE TEST ENGINEERVladislavC [NO LOCAL MD] - Follow up as needed
[2020-02-04 14:41] LABS: INTERNATIONAL RATION (INR) 1.07; PROTHROMBIN TIME 14.1 SEC (11.4-15.4)
[2020-02-04 14:43] LABS: D-DIMER 0.36 ug/mL (0.00-0.50)
[2020-02-04 14:53] LABS: ALBUMIN 4.2 g/dL (3.5-5.0); ALKALINE PHOSPHATASE 127 U/L (38-126); ANION GAP 6 (5-19); ASPARTATE AMINO TRANSFERASE 52 U/L (14-36); BILIRUBIN,DIRECT 0.1 mg/dL (0.0-0.4); BILIRUBIN,TOTAL 0.5 mg/dL (0.2-1.3); BLOOD UREA NITROGEN 21 mg/dL (7-20); CALCIUM 9.1 mg/dL (8.4-10.2); CARBON DIOXIDE 30 mmol/L (22-30); CHLORIDE 99 mmol/L (98-107); GLUCOSE 129 mg/dL (75-110); POTASSIUM 3.8 mmol/L (3.6-5.0); TOTAL PROTEIN 6.9 g/dL (6.3-8.2)
--- NOTE | 2020-02-04 19:47 | RADIOLOGY REPORT (SQ) ---
EXAM DESCRIPTION: VENOUS BILATERAL LOWER IMAGES COMPLETED DATE/TIME: 02/04/2020 7:36 pm REASON FOR STUDY: concern for DVT COMPARISON: None. TECHNIQUE: Dynamic and static rose scale and color images acquired of both lower extremity venous sy stems. Selected spectral images acquired with additional compression and augmentation maneuvers. Imag es stored on PACS. LIMITATIONS: None. FINDINGS: RIGHT LEG COMMON FEMORAL AND FEMORAL: Normal phasicity, compression and augmentation. No visualized echogenic m aterial on rose scale. No defects on color images. POPLITEAL: Normal compression and augmentation. No visualized echogenic material on rose scale. No de fects on color images. CALF VESSELS: Normal compression and augmentation. No visualized echogenic material on rose scale. No defects on color image. GSV AND SSV: Normal compression. No visualized echogenic material on rose scale. No defects on color images. ANY DEEP VENOUS INSUFFICIENCY: Not evaluated. ANY EVIDENCE OF POPLITEAL CYST: No. OTHER: No other significant finding. LEFT LEG COMMON FEMORAL AND FEMORAL: Normal phasicity, compression and augmentation. No visualized echogenic m aterial on rose scale. No defects on color images. POPLITEAL: Normal compression and augmentation. No visualized echogenic material on rose scale. No de fects on color images. CALF VESSELS: Normal compression and augmentation. No visualized echogenic material on rose scale. No defects on color images. GSV AND SSV: Normal compression. No visualized echogenic material on rose scale. No defects on color images. ANY DEEP VENOUS INSUFFICIENCY: Not evaluated. ANY EVIDENCE POPLITEAL CYST: No. OTHER: No other significant finding. IMPRESSION: NO EVIDENCE DVT OR SVT IN EITHER LEG. TECHNICAL DOCUMENTATION: JOB ID: [id number] [employer]- All Rights Reserved Reading location - IP/workstation name: [email or web address]
[2020-02-04 19:49] VITALS: BP 124/70
== END 2020-02-04 19:49 | disposition home or self-care (01) ==
LOC: ER 12:03
DX: M79.604 Pain in right leg (principal); M79.89 Other specified soft tissue disorders; E78.00 Pure hypercholesterolemia, unspecified; E11.9 Type 2 diabetes mellitus without complications; Z79.01 Long term (current) use of anticoagulants; Z86.718 Personal history of other venous thrombosis and embolism; Z86.711 Personal history of pulmonary embolism; Z88.3 Allergy status to other anti-infective agents
CPT/HCPCS: 36415; 80053; 82962; 85025; 85379; 85610; 93970; 99284